=== PATIENT | female | born 1965 | race Caucasian/White ===

== ENCOUNTER 2017-04-08 21:02 | Emergency (ER) | payer OTHER ==
[2017-04-08 21:05] VITALS: BP 139/86; PULSE 105; RESP 16; TEMP 98.5; O2SAT 97
== END 2017-04-08 21:52 | disposition left against medical advice (07) ==
LOC: NED 21:02
DX: Z04.1 Encounter for examination and observation following transport accident (principal)
CPT/HCPCS: 99281

== ENCOUNTER 2017-04-12 17:35 | Emergency (ER) | payer OTHER ==
[~2017-04-12] VITALS: Ht 162.6 cm; Wt 61.5 kg
[2017-04-12 17:37] VITALS: BP 148/98; PULSE 114; RESP 16; TEMP 98.2; O2SAT 99
== END 2017-04-12 18:55 | disposition left against medical advice (07) ==
LOC: NED 17:35
DX: Z04.1 Encounter for examination and observation following transport accident (principal); Z53.21 Procedure and treatment not carried out due to patient leaving prior to being seen by health care provider
CPT/HCPCS: 99281